=== PATIENT | male | born 1985 | race African-American/Black ===

== ENCOUNTER 2017-11-12 02:37 | Emergency (ER) | payer SELFPAY ==
[~2017-11-12] VITALS: Ht 180.3 cm; Wt 61.6 kg
[2017-11-12] MEDS ORDERED: ULTRAM50 MG PO (03:55)
[2017-11-12] MEDS ORDERED: PEN-VEE K,VEET500 MG PO (03:56)
[2017-11-12 04:22] VITALS: BP 138/88
== END 2017-11-12 04:23 | disposition home or self-care (01) ==
LOC: EME 02:37
DX: K04.7 Periapical abscess without sinus (principal); F17.200 Nicotine dependence, unspecified, uncomplicated
CPT/HCPCS: 99281; 99284